=== PATIENT | female | born 1960 | race Caucasian/White ===

== ENCOUNTER 2023-11-14 13:19 | Outpatient (CLI) | payer BC, SELFPAY ==
[2023-11-14 23:54] LABS: Chlamydia DNA Amplified* Not Detected (No Detected)
[2023-11-14 23:55] LABS: GC DNA Amplified* Not Detected (No Detected)
== END 2023-11-14 13:20 | disposition home or self-care (01) ==
PROVIDERS: PCP Physician Assistant Medical; Visit Provider Physician Assistant Medical
DX: Z00.00 Encounter for general adult medical examination without abnormal findings (principal); N89.8 Other specified noninflammatory disorders of vagina
CPT/HCPCS: 87491; 87591

== ENCOUNTER 2023-11-20 08:39 | Outpatient (CLI) | payer BC, SELFPAY | END 2023-11-20 08:40 | disposition home or self-care (01) | LOC: NFLDREF 14:26 | PROVIDERS: PCP Physician Assistant Medical; Referring Provider Physician Assistant Medical; Visit Provider Physician Assistant Medical | DX: Z13.220 Encounter for screening for lipoid disorders (principal); Z13.228 Encounter for screening for other metabolic disorders | CPT/HCPCS: 80053; 80061 ==

== ENCOUNTER 2024-02-07 14:43 | Outpatient (CLI) | payer BC, SELFPAY ==
--- NOTE | 2024-02-07 15:20 | MM_ITS ---
Patient: GABRIEL BEEBE Facility:?[facility] Patient ID:?[id number] Site Patient ID:?[id number] Site :?[id number] Study:?XRay-Breast Bilateral 3D W/CAD-02/08/2024 1:47:22 AM Ordering Physician:ISMA Final Report: BILATERAL SCREENING MAMMOGRAM WITH COMPUTER-AIDED DETECTION AND TOMOSYNTHESIS TECHNIQUE: CC and MLO views were obtained. These mammographic images have been obtained using full-field digital technique. These mammographic images were interpreted with the benefit of computer-aided detection. Breast Tomosynthesis was used in this interpretation. COMPARISON FILM: 11/19/22, 11/06/21, 02/27/17. FINDINGS: There are scattered areas of fibroglandular density. IMPRESSION: There is no radiographic evidence for malignancy. ASSESSMENT: BI-RADS Category 2: Benign RECOMMENDATION: Routine screening mammogram in 1 year. A lay language report of this examination will be provided to the patient. Abel Chi M.D. Diagnostic Radiologist [email or web address] DSM/sp R& Transcribed: 4:20 p.m. SP/Dictated by: Abel Chi MD @ 02/10/2024 9:34:00 AM Signed by:?Abel Chi MD @02/10/2024 5:13:42 PM (Electronic Signature)
== END 2024-02-07 14:44 | disposition home or self-care (01) ==
LOC: MAMMO 14:44
PROVIDERS: PCP Physician Assistant Medical; Visit Provider Physician Assistant Medical
DX: Z12.31 Encounter for screening mammogram for malignant neoplasm of breast (principal)
CPT/HCPCS: 77063; 77067

== ENCOUNTER 2024-11-18 08:22 | Outpatient (CLI) | payer BC, SELFPAY | END 2024-11-18 08:23 | disposition home or self-care (01) | PROVIDERS: PCP Physician Assistant Medical; Visit Provider Physician Assistant Medical | DX: E78.5 Hyperlipidemia, unspecified (principal); R73.01 Impaired fasting glucose; Z13.0 Encounter for screening for diseases of the blood and blood-forming organs and certain disorders involving the immune mechanism; Z13.6 Encounter for screening for cardiovascular disorders; Z11.59 Encounter for screening for other viral diseases; Z11.3 Encounter for screening for infections with a predominantly sexual mode of transmission | CPT/HCPCS: 80053; 80061; 86703; 86803 ==

== ENCOUNTER 2025-01-21 07:46 | Outpatient (CLI) | payer BC, SELFPAY ==
--- NOTE | 2025-01-21 09:29 | P.ANES_ITS ---
Anesthesia Charges Start Date/Time Anesthesia Start Date: 01/21/25 Anesthesia Start Time: 08:41 Stop Date/Time Anesthesia Stop Date: 01/21/25 Anesthesia Stop Time: 09:25 Coding CPT Codes CPT Codes: MORA LWR INTST NDNM NOS - 75627 ([id number]) P1 - NORMAL HEALTHY PATIENT, QK - LPN PER DIEM 2-4 CNCRNT ANES PROC, QX - MARIONETTE PERFORMER SVC W/ MED DIRECTION
--- NOTE | 2025-01-21 09:29 | W.ANESCHARGE ---
Anesthesia Charges Start Date/Time Anesthesia Start Date: 01/21/25 Anesthesia Start Time: 08:41 Stop Date/Time Anesthesia Stop Date: 01/21/25 Anesthesia Stop Time: 09:25 Coding CPT Codes CPT Codes: MORA LWR INTST NDDC NOS - 95120 ([id number]) P1 - NORMAL HEALTHY PATIENT, QK - TEST CENTER MANAGER 2-4 CNCRNT ANES PROC, QX - ACRYLIC FABRICATOR SVC W/ MED DIRECTION
--- NOTE | 2025-01-21 12:07 | P.ANES_ITS ---
Anesthesia Charges Start Date/Time Anesthesia Start Date: 01/21/25 Anesthesia Start Time: 08:41 Stop Date/Time Anesthesia Stop Date: 01/21/25 Anesthesia Stop Time: 09:25 Coding CPT Codes CPT Codes: MORA LWR INTST NDDE NOS - 73564 ([id number]) P1 - NORMAL HEALTHY PATIENT, QX - ARTIST MANAGER SVLorena W/ MED DIRECTION, QK - BLOW MOULDING MACHINE OPERATOR 2-4 CNCRNT MORA PROC
--- NOTE | 2025-01-21 12:07 | W.ANESCHARGE ---
Anesthesia Charges Start Date/Time Anesthesia Start Date: 01/21/25 Anesthesia Start Time: 08:41 Stop Date/Time Anesthesia Stop Date: 01/21/25 Anesthesia Stop Time: 09:25 Coding CPT Codes CPT Codes: MORA LWR INTST NDMS NOS - 82612 ([id number]) P1 - NORMAL HEALTHY PATIENT, QX - MARKET RESEARCHER SVLorena W/ MED DIRECTION, QK - CONFERENCE SERVICES COORDINATOR 2-4 CNCRNT MORA PROC
== END 2025-01-21 07:47 | disposition home or self-care (01) ==
LOC: OP CLINIC 07:46
PROVIDERS: PCP Physician Assistant Medical; Visit Provider Surgery
DX: Z12.11 Encounter for screening for malignant neoplasm of colon (principal); Z86.0100 Personal history of colon polyps, unspecified; D12.2 Benign neoplasm of ascending colon; D12.3 Benign neoplasm of transverse colon
CPT/HCPCS: 00811; 00812; 45385; 88305; J2704

== ENCOUNTER 2025-02-09 11:08 | Outpatient (CLI) | payer BC, SELFPAY ==
--- NOTE | 2025-02-09 11:30 | CRLHL7_ITS ---
For Patients: As a result of the Century Cures Act, medical imaging exams and procedure reports are released immediately into your electronic medical record. You may view this report before your referring provider. If you have questions, please contact your health care provider. INDICATION: BILATERAL SCREENING MAMMOGRAM, ASYMPTOMATIC 64 Y/O FEMALE COMPARISON: 02/07/2024, 11/19/2022, 11/06/2021 TECHNIQUE: Digital mammogram in CC and MLO projections including computer-aided detection (CAD) and tomosynthesis. BREAST COMPOSITION: There are scattered areas of fibroglandular density. FINDINGS: No suspicious findings. ASSESSMENT: BI-RADS 2 Benign RECOMMENDATION: Annual screening mammogram. A lay language report of this examination will be provided to the patient. Dictated by: Abel Chi MD @ 02/09/2025 12:11:50 (Electronically Signed)
== END 2025-02-09 11:09 | disposition home or self-care (01) ==
LOC: MAMMO 11:08
PROVIDERS: PCP Physician Assistant Medical; Visit Provider Physician Assistant Medical
DX: Z12.31 Encounter for screening mammogram for malignant neoplasm of breast (principal)
CPT/HCPCS: 77063; 77067